=== PATIENT | male | born 1970 | race Caucasian/White ===

== ENCOUNTER → 2024-04-07 06:43 | Outpatient (REF) | payer OTHER, SELFPAY | LOC: HWRAD 06:43 | PROVIDERS: ATTENDING PHYSICIAN Nurse Practitioner Family | DX: R19.00 Intra-abdominal and pelvic swelling, mass and lump, unspecified site (principal) | CPT/HCPCS: 76882 ==

== ENCOUNTER 2024-05-29 06:12 | Day surgery (SDC) | payer OTHER, SELFPAY ==
[2024-05-20 07:54] VITALS: BMI 25.1
[2024-05-29] VITALS (9 sets, daily range): BP systolic 114–123; BP diastolic 73–84; BMI 25.1
[2024-05-29] MEDS: TYLENOL 1000 MG PO (06:35)
[2024-05-29] MEDS: NORMOSOL-R 1000 IV (07:06)
--- NOTE | 2024-05-29 07:19 | W.SUR.PREOP ---
Pre-Operative Surgical Note
-
I have examined this patient prior to the performance of the scheduled procedure.
The patient's condition is unchanged from the time of the current History and
Physical and the patient is able to undergo the scheduled procedure.
--- NOTE | 2024-05-29 09:30 | W.IMMPOSTOP ---
Surgical Immed Post Op Note
-
Primary Surgeon: Tamir Arana MD
Assisting Surgeon: None
Pre-op Diagnosis: Right inguinal hernia, umbilical hernia
Post-op Diagnosis: Same
Procedure Performed:
1. Laparoscopic right inguinal hernia repair with mesh
2. Primary open umbilical hernia repair
Anesthesia Type: General
Specimen / Cultures: None
Estimated Blood Loss: 7 cc
Complications: None
Operative Findings: Standard laparoscopic TEP approach. Moderate sized left indirect inguinal hernia, no direct or femoral components. A medium size cord lipoma was reduced. The floor was reinforced with a large right standard weight Bard 3D max
polypropylene uncoated mesh. A rent was made in in the flap which was closed with 0 PDS Endoloop. We did go transabdominal to confirm no mesh was exposed and that it lay completely flat which I did. The patient all is also noted to have a 1 cm
umbilical defect which was repaired primarily with 0 PDS suture.
POST OP PLAN:
Will discharge home with an ice pack, after voiding.
--- NOTE | 2024-05-29 09:33 | OR.RPT ---
Operative Report
Operative Report
Patient Name: Bruno Grigsby
: 1970
Date of Operation: 05/29/2024
Preoperative Diagnosis: Right inguinal hernia, umbilical hernia
Postoperative Diagnosis: Same
Procedure(s):
Laparoscopic right inguinal Hernia Repair with mesh, (TEP approach)
Open primary umbilical hernia repair
Surgeon(s):
Dr. Arana
Supply Chain Buyer(s):
JAD Quesada
Anesthesia: General
Estimated Blood Loss: 7 cc
Urine Output: None
Drains/Lines/Implants: Large 3D Max Bard Mesh
Specimens: None
Indication for surgery: The patient has a history of groin pain and noted on exam to have a right inguinal hernia as well as an umbilical hernia. Following review of therapeutic options they elected to undergo a minimally invasive/open repair.
Operative Findings: Standard laparoscopic TEP approach. Moderate sized left indirect inguinal hernia, no direct or femoral components. A medium size cord lipoma was reduced. The floor was reinforced with a large right standard weight Bard 3D max
polypropylene uncoated mesh. A rent was made in in the flap which was closed with 0 PDS Endoloop. We did go transabdominal to confirm no mesh was exposed and that it lay completely flat which I did. The patient all is also noted to have a 1 cm
umbilical defect which was repaired primarily with 0 PDS suture.
Details of the operation:
After inducing general anesthesia and endotracheal intubation, the patient was prepped and draped in the supine position with both arms tucked. After infiltration with 0.25% Marcaine, a right periumbilical incision was made. Dissection was carried
down to the anterior sheath which was incised and the rectus muscle retracted laterally. An origin balloon was then inserted in through the posterior portion of the rectus into the preperitoneal space. This was insufflated under direct vision and
blunt dissection was therefore achieved in the preperitoneal space. The balloon was then removed and a 12mm Balloon trocar was placed. Two 5-mm ports were also placed in the midline below the camera port. Blunt dissection was used to dissect the
myopectineal orifice with care not to injure the epigastric vessels, gonadals or spermatic cord. Blunt dissection was used to identify the direct, indirect, and femoral spaces. Visualization was fairly difficult as the space was fairly cramped and
a rent was made fairly early on in our peritoneal flap. This was closed with a 0 PDS Endoloop
Right side:
The cord was inspected and an indirect hernia sac was noted and reduced.
There was a cord lipoma that was reduced.
There was no weakness in the direct space floor.
There was no femoral herniation.
A large 3D max mesh was then placed into position and positioned into the appropriate area to cover all 3 defects. No tacks were used.
The area was then completely infiltrated with 20 cc of Marcaine without epinephrine (0.25%). The insufflation was slowly decreased and the mesh was assured to be in proper position with desufflation. After removing reports, the posterior sheath at
the umbilicus was identified in the rent was made to enter the abdomen. The Theo trocar was placed through this and pneumoperitoneum was reestablished. We then inspected our repair and indeed confirmed that the mesh to lay flat and that our rent
was completely closed and no mesh was exposed. The port was then removed and the abdomen was desufflated completely. We then closed our umbilical port site in layers with 0 PDS [id number].
We then turned our attention to the umbilicus and the periumbilical incision was extended to the right. We then circumferentially dissected around the umbilical stalk and isolated the hernia sac. The hernia sac was then carefully dissected off of
the overlying stalk and found to contain preperitoneal fat. The defect measured roughly 1 cm. This was closed with a 0 PDS suture in a running transverse fashion. The umbilical stalk was then tacked down to the underlying fascia with a 3-0
Vicryl. The skin was then approximated with interrupted 3-0 Vicryl's. All port sites were then closed with interrupted 4-0 Monocryl's and dressed with Dermabond. Inspection of the scrotum revealed both testes to be in position. The patient
returned to the recovery room in stable condition. Sponge and instrument counts were correct. No specimen sent to pathology
I was the attending physician and performed the procedure with assistance from the CIGAR MAKING MACHINE OPERATOR above . I was present for all portions of the case
Tamir Arana MD
[2024-05-29] MEDS: ZOFRAN 4 MG IV (10:03)
== END 2024-05-29 11:45 | disposition home or self-care (01) ==
LOC: SDS 06:12
PROVIDERS: ATTENDING PHYSICIAN Surgery; FAMILY PHYSICIAN Physician Assistant Medical
DX: K40.90 Unilateral inguinal hernia, without obstruction or gangrene, not specified as recurrent (principal); K42.9 Umbilical hernia without obstruction or gangrene; D17.6 Benign lipomatous neoplasm of spermatic cord
CPT/HCPCS: 49650; 49591; 36415; 93005; C1781

== ENCOUNTER → 2025-09-21 09:01 | Outpatient (REF) | payer OTHER, SELFPAY | LOC: HWRAD 09:01 | PROVIDERS: ATTENDING PHYSICIAN Physician Assistant Medical | DX: R91.1 Solitary pulmonary nodule (principal) | CPT/HCPCS: 71250 ==